=== PATIENT | female | born 1980 | race Caucasian/White ===

== ENCOUNTER 2018-05-27 15:14 | Emergency (ER) | payer MEDICAID, SELFPAY ==
[2018-05-27 15:15] VITALS: BP 161/83; PULSE 103; RESP 16; TEMP 36.7; BMI 44.3
--- NOTE | 2018-05-27 15:28 | RAD_ITS ---
STUDY: X-RAY - RIGHT WRIST REASON FOR EXAM: Female, 38 years old. Trauma TECHNIQUE: 3 view(s) of the wrist were obtained. COMPARISON: None. FINDINGS: Normal visualized distal radius and ulna. Normal radiocarpal articulation. Normal distal radioulnar articulation. Normal carpal bones. Normal carpal articulations. Normal carpometacarpal articulation of the thumb. Normal second through fifth carpometacarpal articulations. There is an old healed fracture of the mid fifth metacarpal shaft. The soft tissue structures are unremarkable. RAD/Wrist min 3 Views IMPRESSION: Normal x-ray examination of the wrist. Electronically Signed: Sotero Bentley MD at 16:12 EDT , Service support ,
--- NOTE | 2018-05-27 15:30 | ED.DCSUM_ITS ---
- ER Visit Summary Date of Service: 05/27/18 Chief Complaint: [Injury to right wrist] History of Present Illness: The patient is a 38 F [presents the emergency department stating having pain in her right wrist for the last hour. Patient states that she was washing a glass and she stuck several of her fingers and of the glass to wash it and supinated her wrist and felt sudden onset of discomfort and felt a pop on the ulnar aspect of the wrist. Patient has numbness and tingling in the fourth and fifth fingers.] Physical Examination: [HEENT-PERRLA, EOMI. Cranial nerves II through XII grossly intact. TMs clear. Mucous membranes moist. No adenopathy. Cardiovascular-regular rate and rhythm without murmur or ectopy Lungs-clear to auscultation, chest wall stable without crepitus or subcu emphysema Abdomen-normoactive bowel sounds, soft, nontender, no rebound or rigidity, no peritoneal signs. Extremities-intact ?4, normal range of motion, normal pulses, atraumatic. Right wrist-patient has tenderness diffusely about the ulnar aspect of the wrist diffusely about the carpal bones. She has good range of motion flexion extension of the wrist. She has normal range of motion flexion extension of all digits. Neurovascular intact distally.] Test Results: [Right wrist x-rays were ordered which] was read as normal by myself. I do not see a fracture or dislocation. Emergency Department Course and Treatment: [Patient was placed in a wrist splint ] Treatment Plan: [Wrist splint and prescription for naproxen. Patient will be referred to primary care physician for follow-up in 5-7 days.] Disposition: [Discharged home in stable condition] Impression: [Right wrist sprain. ] This note was generated with [employer] dictation software. It may contain incorrect words, spelling, and punctuation that were not noted in review of the chart prior to signing ED Disposition - Plan for ED Patient: Referrals: Care Physician,No Primary [Primary Care Provider] -
--- NOTE | 2018-05-27 16:06 | ED.DEP ---
ED Disposition - Plan for ED Patient: Instructions: ED Sprain Wrist Prescriptions: Naproxen [Naprosyn] 500 mg PO BID PRN #20 tab Referrals: Care Physician,No Primary [Primary Care Provider] - Obed Brennan DO [STAFF PHYSICIAN] - 5-7 Days
--- NOTE | 2018-05-27 16:09 | ED.DEP ---
ED Disposition - Plan for ED Patient: Instructions: ED Sprain Wrist Prescriptions: Naproxen [Naprosyn] 500 mg PO BID PRN #20 tab Referrals: Obed Brennan DO [STAFF PHYSICIAN] - 5-7 Days Care Physician,No Primary [Primary Care Provider] -
[2018-05-27] MEDS: Naproxen 500 MG Tablet PO (16:14)
--- NOTE | 2018-05-27 16:25 | ED.RN ---
DC INSTRUCTIONS REVIEWED. REVIEWED USE OF NAPROXYEN/ALEVE. VERBALIZES UNDERSTANDING. PT LEFT UNIT, PT DID NOT GET THE RX FOR NAPROXEN ATTEMPTED TO CALL. NO ANSWER PT INBOX FULL AT THIS TIME. RX FOR SAME DISCUSSED WITH PT. PRIOR TO DC
== END 2018-05-27 16:19 | disposition home or self-care (01) ==
LOC: ED 15:37
PROVIDERS: Emergency Provider Emergency Medicine
DX: S63.501A Unspecified sprain of right wrist, initial encounter (principal); X50.1XXA Overexertion from prolonged static or awkward postures, initial encounter; Y93.G1 Activity, food preparation and clean up; Y92.000 Kitchen of unspecified non-institutional (private) residence as the place of occurrence of the external cause; Y99.8 Other external cause status
CPT/HCPCS: 73110; 99283